=== PATIENT | female | born 1960 | race Caucasian/White ===

== ENCOUNTER → 2021-01-17 | Day surgery (SDC) | payer OTHER ==
[~2021-01-17] MED LIST: ACETAMINOPHEN500 M1 PO; ASPIRIN CHEWABL81 MG PO; BLACK ELDERBER1 EACH PO; DIFLUCAN150 MG PO; HCTZ25 MG PO; K-DUR20 MEQ PO; MAG-OXIDE 400M400 MG PO; MELOXICAM15 MG PO; MICRO-K10 MEQ PO; MOTRIN600 MG PO; NEURONTIN300 MG PO; PERCOCET 5-3251 EACH PO; POTASSIUM CHLO10 MEQ PO; PRESERVISION A1 EAC1 PO; PRINIVIL10 MG PO; TRAMADOL HCL50 MG PO; VITAMIN D35000 UNI1 PO; XARELTO10 MG PO; ZOFRAN4 MG PO; ZOLPIDEM TARTRAT5 MG PO
== END | disposition home or self-care (01) ==
LOC: FAS 11:19
DX: M76.891 Other specified enthesopathies of right lower limb, excluding foot (principal); S76.011A Strain of muscle, fascia and tendon of right hip, initial encounter; M16.11 Unilateral primary osteoarthritis, right hip; I10 Essential (primary) hypertension; Z96.651 Presence of right artificial knee joint; Z79.899 Other long term (current) drug therapy; W19.XXXA Unspecified fall, initial encounter
CPT/HCPCS: 97161; 97530-GP; J2250; J2795; J7120